=== PATIENT | female | born 1990 | race Two or more races ===

== ENCOUNTER → 2025-07-17 08:14 | Outpatient (CLI) | payer OTHER | END | disposition home or self-care (01) | LOC: PRENATAL 08:14 | PROVIDERS: ATTEND Obstetrics & Gynecology Maternal & Fetal Medicine | DX: O44.02 Complete placenta previa NOS or without hemorrhage, second trimester (principal); O09.512 Supervision of elderly primigravida, second trimester; Z14.8 Genetic carrier of other disease; O34.12 Maternal care for benign tumor of corpus uteri, second trimester; Z3A.21 21 weeks gestation of pregnancy ==